=== PATIENT | male | born 1955 | race Caucasian/White ===

== ENCOUNTER 2017-07-21 23:05 | Emergency (ER) | payer OTHER ==
--- NOTE | 2017-07-22 00:29 | EDM.PDOC ---
ED HPI GENERAL MEDICAL PROBLEM - General Chief Complaint: Gastrointestinal Problem Stated Complaint: RECTAL BLEEDING Time Seen by Provider: 07/22/17 00:00 Source of Information: Reports: Patient, Family History Limitations: Reports: No Limitations - History of Present Illness INITIAL COMMENTS - FREE TEXT/NARRATIVE: 61-year-old male with several hours of rectal bleeding. He feels fine, no abdominal pain, fever, diarrhea or constipation. He had a normal colonoscopy 4 years ago. Onset: Sudden - Related Data Allergies Allergy/AdvReac Type Severity Reaction Status Date / Time bacitracin Allergy Itching Verified 07/21/17 23:34 [From Neosporin ([id number])] neomycin Allergy Itching Verified 07/21/17 23:34 [From Neosporin ([id number])] polymyxin B Allergy Itching Verified 07/21/17 23:34 [From Neosporin ([id number])] Sulfa (Sulfonamide Allergy Rash Verified 07/21/17 23:34 Antibiotics) Home Meds: Home Meds Timolol [Betimol 0.5% Ophth Soln] 1 drop EYEBOTH BEDTIME 07/22/17 [History] Past Medical History HEENT History: Reports: Glaucoma Gastrointestinal History: Reports: Diverticulosis - Past Surgical History GI Surgical History: Reports: None Social & Family History - Family History Family Medical History: Noncontributory - Tobacco Use Smoking Status *Q: Never Smoker Second Hand Smoke Exposure: No - Caffeine Use Caffeine Use: Reports: Coffee - Alcohol Use Days Per Week of Alcohol Use: 4 Number of Drinks Per Day: 1 Total Drinks Per Week: 4 Date of Last Drink: 07/21/17 Time of Last Drink: 12:00 - Recreational Drug Use Recreational Drug Use: No ED ROS GENERAL - Review of Systems Review Of Systems: See Below Constitutional: Denies: Fever Respiratory: Denies: Shortness of Breath Cardiovascular: Denies: Chest Pain GI/Abdominal: Reports: Hematochezia. Denies: Abdominal Pain, Nausea, Vomiting : Reports: No Symptoms Neurological: Reports: No Symptoms ED EXAM, GENERAL - Physical Exam Exam: See Below Exam Limited By: No Limitations General Appearance: Alert, No Apparent Distress Respiratory/Chest: No Respiratory Distress Cardiovascular: Normal Peripheral Pulses, Regular Rate, Rhythm GI/Abdominal: Soft, Non-Tender Course - Vital Signs Last Recorded V/S: Last Vital Signs Temp 98.4 F 07/21/17 23:31 Pulse 89 07/21/17 23:31 Resp 16 07/21/17 23:31 BP 137/79 07/21/17 23:31 Pulse Ox 97 07/21/17 23:31 - Orders/Labs/Meds Labs: Laboratory Tests 07/22/17 Range/Units 00:04 WBC 8.1 (4.5-11.0) K/uL RBC 4.78 (4.30-5.90) M/uL Hgb 15.7 H (12.0-15.0) g/dL Hct 44.4 (40.0-54.0) % MCV 93 (80-98) fL MCH 33 H (27-31) pg MCHC 35 (32-36) % Plt Count 229 (150-400) K/uL Neut % (Auto) 36 (36-66) % Lymph % (Auto) 47 H (24-44) % [place] % (Auto) 12 H (2-6) % Eos % (Auto) 5 H (2-4) % Baso % (Auto) 0 (0-1) % - Re-Assessments/Exams Free Text/Narrative Re-Assessment/Exam: 07/22/17 01:01 CBC was obtained, hemoglobin is 15.7. Copies of the labs are given to the patient and he is planning on returning to the [place] area tomorrow, and will recheck in the next 2-3 days if symptoms continue. Departure - Departure Time of Disposition: 00:34 Disposition: Home, Self-Care 01 Condition: Good Clinical Impression: Rectal bleeding - Discharge Information Instructions: Rectal Bleeding, [id number] Referrals: PCP,None [Primary Care Provider] - Forms: ED Department Discharge Care Plan Goals: Recheck in the next 48-72 hours if bleeding continues, or return sooner if worsening if you become more symptomatic such as lightheadedness.
== END 2017-07-22 00:34 | disposition home or self-care (01) ==
LOC: JP.ED 23:05
DX: K62.5 Hemorrhage of anus and rectum (principal); Z88.2 Allergy status to sulfonamides; Z88.1 Allergy status to other antibiotic agents
CPT/HCPCS: 36415; 85025; 99284